=== PATIENT | male | born 1965 | race Two or more races ===

== ENCOUNTER 2019-04-05 21:17 | Inpatient (IN) | payer MEDICARE, OTHER ==
[~2019-04-05] VITALS: Ht 182.9 cm; Wt 124.7 kg
[2019-04-05] MEDS ORDERED: ACETAMINOPHEN 325 MG TABLET PO PRN (22:30)
[2019-04-05] MEDS ORDERED: MAG HYDROX/AL HYDROX/SIMETH 30 ML UDC PO PRN (22:30)
[2019-04-05] MEDS ORDERED: MAGNESIUM HYDROXIDE 30 ML UDC PO PRN (22:30)
[2019-04-05] MEDS ORDERED: ASPI-605 PO (22:32)
[2019-04-05] MEDS ORDERED: ATOR10TA PO (22:33)
[2019-04-05] MEDS ORDERED: CLOZ100T32 PO (22:34)
[2019-04-05] MEDS ORDERED: DOCU100C36 PO (22:35)
[2019-04-05] MEDS ORDERED: POLY17PO4 PO (22:36)
[2019-04-05] MEDS ORDERED: VALP250S4 PO (22:38)
[2019-04-05] MEDS ORDERED: ACET-907 PO (22:40)
[2019-04-05] MEDS ORDERED: IBUP-1953 PO (22:50)
[2019-04-05] MEDS ORDERED: HALO5TAB PO (22:54)
[2019-04-05] MEDS ORDERED: HALO5TAB8 PO (22:55)
[2019-04-05] MEDS ORDERED: BLOOD SUGAR DIAGNOSTIC 1 EACH STRIP IN ONE (23:00)
--- NOTE | 2019-04-05 23:29 | NUR ---
GPS RN NOTE, PATIENT HAS A COMPLAINT OF CHRONIC BILATERAL KNEE PAIN AT 3 OUT 0F 10 ON THE PAIN SCALE AND WOULD LIKE IBUPROFEN ORDERED FOR HIM. PATIENT ALSO NEEDS A MEDICATION RECONCILIATION. PAGED [facility] AND IN FORMED HUYEN GOMEZ DNP OF MY FINDINGS. HUYEN GOMEZ DNP ORDERED TO GIVE IBUPROFEN 600 MG PO Q6HR PRN AND SAID HE WILL RECONCILE PATIENTS HOME MEDICATION SOON POSSIBLE. ALL ORDERS NOTED AND CARRIED OUT WILL CONTINUE TO MONITOR THIS PATIENT WITH THE HELP OF STAFF.
[2019-04-06 00:31] VITALS: BP 104/66
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
[2019-04-06 08:00] VITALS: BP 106/67
[2019-04-06] MEDS ORDERED: LORA-259 PO (08:55)
--- NOTE | 2019-04-06 08:56 | NUR ---
RACE STEWARD/MED RECON. MED-RECON UPDATED. INFO OBTAINED FROM [facility] [phone], FROM [facility]-STAFF.
[2019-04-06] MEDS: NICOTINE PATCH (21MG) 21 MG PATCH.TD24 TD SCH (09:00)
[2019-04-06] MEDS: LORAZEPAM 1 MG TABLET PO PRN ×2 (11:12→18:07)
--- NOTE | 2019-04-06 11:13 | NUR ---
RN NOTE- PT WITH ANXIETY . REQUESTING MEDICATION. ATIVAN 1MG GIVEN.
[2019-04-06] MEDS: BENZTROPINE MESYLATE (1 MG) 1 MG TABLET PO SCH ×2 (12:16→17:12)
[2019-04-06] MEDS: HALOPERIDOL 5 MG TABLET PO SCH ×2 (12:53→17:12)
[2019-04-06] MEDS: DIVALPROEX SODIUM 500 MG TABLET.DR PO SCH ×2 (12:58→21:54)
[2019-04-06 16:00] VITALS: BP 134/91
[2019-04-06] MEDS: IBUPROFEN 600 MG TABLET PO PRN (18:49)
--- NOTE | 2019-04-06 18:49 | NUR ---
RN NOTE- PT C/O PAIN GENERALIZED. MOTRIN 600 MG GIVEN
[2019-04-06 20:49] VITALS: BP 122/80
[2019-04-06] MEDS: ATORVASTATIN 10 MG TABLET PO SCH (21:54)
[2019-04-06] MEDS: ZOLPIDEM TARTRATE 5 MG TABLET PO PRN (22:08)
[2019-04-07] MEDS: IBUPROFEN 600 MG TABLET PO PRN ×2 (03:41→14:00)
--- NOTE | 2019-04-07 03:43 | NUR ---
RN NOTES PT COMPLAINED OF GENERALIZED BODY PAIN, MOTRIN 600MG GIVEN PO AT 0343. WILL CONTINUE TO MONITOR
--- NOTE | 2019-04-07 06:22 | NUR ---
RN NOTES DRUG SCREEN ORDERED, URINE SPECIMEN COLLECTED AT 0600 AND PICKED UP BY LABS. WILL ENDORSE TO NEXT SHIFT
--- NOTE | 2019-04-07 06:38 | NUR ---
RN NOTES PT IN GOOD CONDITION, LYING IN BED, AWAKE AND ALERT X2-3. NO S/S OF DISTRESS, RESPIRATION EVEN AND UNLABORED. SAFETY PRECAUTION CONTINUED, BED IN LOW POSITION, LOCKED AND SIDE RAILS UP X2. WILL CONTINUE TO MONITOR AND ENDORSE TO AM SHIFT
[2019-04-07 06:47] LABS: CALCIUM, SERUM 7.9 mg/dL (8.5-10.1); POTASSIUM 3.9 mmol/L (3.5-5.1)
[2019-04-07 06:53] LABS: BASOPHILS % (AUTO) 0.4 % (0.0-2.0); EOSINOPHILS % (AUTO) 2.7 % (0.0-6.0); HEMATOCRIT 40 % (39-51); HEMOGLOBIN 13.5 g/dL (13.5-17.5); LYMPHOCYTES # (AUTO) 3.4 /CMM (0.8-4.8); LYMPHOCYTES % (AUTO) 34.4 % (20.0-44.0); MEAN CORPUSCULAR HGB CONC 34 g/dl (31.0-36.0); MEAN CORPUSCULAR VOLUME 87 fL (80-96); MONOCYTES # (AUTO) 0.9 /CMM (0.1-1.30); MONOCYTES % (AUTO) 9.5 % (2.0-12.0); NEUTROPHILS # (AUTO) 5.2 /CMM (1.8-8.9); PLATELET COUNT (AUTO) 182 /CMM (150-450); RED BLOOD CELL COUNT(AUTO) 4.64 MIL/uL (4.5-6.0); WHITE BLOOD COUNT (AUTO) 9.8 K/uL (4.3-11.0)
[2019-04-07 08:00] VITALS: BP 128/82
[2019-04-07] MEDS: NICOTINE PATCH (21MG) 21 MG PATCH.TD24 TD SCH (08:10)
[2019-04-07] MEDS: BENZTROPINE MESYLATE (1 MG) 1 MG TABLET PO SCH ×2 (08:10→16:03)
[2019-04-07] MEDS: HALOPERIDOL 5 MG TABLET PO SCH ×3 (08:10→16:03)
[2019-04-07] MEDS: DIVALPROEX SODIUM 500 MG TABLET.DR PO SCH ×2 (08:51→20:43)
[2019-04-07] MEDS: ASPIRIN EC 81 MG TABLET.DR PO SCH (08:51)
[2019-04-07] MEDS: ESCITALOPRAM OXALATE (10 MG) 10 MG TABLET PO SCH (08:51)
--- NOTE | 2019-04-07 11:23 | NUR ---
Conservator Contact: Isabela ([phone]), pts LPS Conservator, called the SW and stated that she wanted information on the pts admission and that the SW can also ask any questions for the assessment. SW stated that she would need the detain and treat as well as the conservatorship paperwork faxed to her. SW also stated that she was unable to do the assessment with the pt and therefore received collateral information from the conservator. SW then discussed the pts discharge plan and it was discussed that the conservator will go off of the MDs recommendation.
[2019-04-07] MEDS: LORAZEPAM 1 MG TABLET PO PRN ×2 (14:00→20:11)
--- NOTE | 2019-04-07 14:00 | NUR ---
RN-CO: Ativan 1 mg PO for anxiety was given.
[2019-04-07 16:00] VITALS: BP 112/66
--- NOTE | 2019-04-07 16:03 | NUR ---
Facility Contact: SW called [facility] facility located at [address] [place] [id number]; ([phone]) and was told that the database administrator will decide if the pt can return but she is out for the day.
--- NOTE | 2019-04-07 16:03 | NUR ---
Initial Discharge Plan: Pt currently resides at [facility] facility located at [address] [place] [id number]; ([phone]). Per pt, he would like to go live with his mother in [place]. Per pts conservator, Isabela ([phone]), the MDs recommendation will be taken into account for placement. LAUREL called the facility ([phone]) and was told that the applications administrator is out but she will decide. LAUREL will work with the MD and the pt regarding appropriate discharge planning. SW will form a safe and proper discharge.
--- NOTE | 2019-04-07 20:12 | NUR ---
RN NOTES: PT. C/O FEELING ANXIOUS , PARANOID ATIVAN 1 MG PO PRN GIVEN PER PT. REQUEST , WILL CONTINUE TO MONITOR.
[2019-04-07 20:20] VITALS: BP 121/83
[2019-04-07] MEDS: ATORVASTATIN 10 MG TABLET PO SCH (21:42)
[2019-04-08 08:00] VITALS: BP 100/58
[2019-04-08] MEDS: HALOPERIDOL 5 MG TABLET PO SCH ×3 (08:40→16:03)
[2019-04-08] MEDS: BENZTROPINE MESYLATE (1 MG) 1 MG TABLET PO SCH ×2 (08:40→16:03)
[2019-04-08] MEDS: ESCITALOPRAM OXALATE (10 MG) 10 MG TABLET PO SCH (08:40)
[2019-04-08] MEDS: NICOTINE PATCH (21MG) 21 MG PATCH.TD24 TD SCH (08:40)
[2019-04-08] MEDS: IBUPROFEN 600 MG TABLET PO PRN ×2 (08:40→16:03)
[2019-04-08] MEDS: ASPIRIN EC 81 MG TABLET.DR PO SCH (08:40)
[2019-04-08] MEDS: DIVALPROEX SODIUM 500 MG TABLET.DR PO SCH ×2 (09:53→20:10)
--- NOTE | 2019-04-08 15:51 | NUR ---
Group Note: SW encouraged pt to participate in group on 04/07/19 at 2pm discussing discharge planning. Pt appeared to be isolating in his room and not engaging with his environment. Pt refused to attend group and stated that he understands that he is going to be discharged back to [facility]. SW stated that she has not confirmed that with the project administrator and therefore it is not certain. Pt stated that he wants to live with his mother in [place] but the SW stated that a SNF may be more appropriate.
--- NOTE | 2019-04-08 15:54 | NUR ---
Facility Contact: LAUREL called [facility] facility located at [address] [place] [address]; ([phone]) and spoke to Ayla who stated that she would like notes to send via e-fax: [phone] when the pt is closer to discharge.
--- NOTE | 2019-04-08 15:57 | NUR ---
Group Note: SW encouraged pt to participate in group on 04/08/19 at 2pm discussing reality testing. Pt appeared to be isolating in his room and not engaging with his environment. Pt refused to attend group and stated that he does not understand why he is in the hospital. Pt stated that he thought he was brought here because he was sick but SW stated that it was because he made a suicide attempt. Pt stated that he does not know what the SW is talking about.
[2019-04-08 16:00] VITALS: BP 146/82
--- NOTE | 2019-04-08 16:04 | NUR ---
RN-CO: MOTRIN 600 MG PO GIVEN FOR GEN. PAIN.
[2019-04-08 20:21] VITALS: BP 124/68
[2019-04-08] MEDS: ATORVASTATIN 10 MG TABLET PO SCH (21:14)
[2019-04-09] MEDS: IBUPROFEN 600 MG TABLET PO PRN ×3 (03:54→18:11)
--- NOTE | 2019-04-09 03:56 | NUR ---
RN NOTES: PT COMPLAINING OF 7/10 GENERALIZED ACHY PAIN. PT WAS ADMINISTERED MOTRIN 600MG PO. WILL CONTINUE TO MONITOR.
[2019-04-09 08:00] VITALS: BP 134/75
[2019-04-09] MEDS: DIVALPROEX SODIUM 500 MG TABLET.DR PO SCH ×2 (08:53→21:30)
[2019-04-09] MEDS: LORAZEPAM 1 MG TABLET PO PRN ×2 (08:53→16:51)
[2019-04-09] MEDS: ESCITALOPRAM OXALATE (10 MG) 10 MG TABLET PO SCH (08:54)
[2019-04-09] MEDS: ASPIRIN EC 81 MG TABLET.DR PO SCH (08:54)
[2019-04-09] MEDS: BENZTROPINE MESYLATE (1 MG) 1 MG TABLET PO SCH ×2 (08:54→16:51)
[2019-04-09] MEDS: NICOTINE PATCH (21MG) 21 MG PATCH.TD24 TD SCH (08:54)
[2019-04-09] MEDS: HALOPERIDOL 5 MG TABLET PO SCH ×3 (08:54→16:51)
--- NOTE | 2019-04-09 08:57 | NUR ---
PRN ATIVAN GIVEN FOR RESTLESSNESS
--- NOTE | 2019-04-09 10:13 | NUR ---
PRN MOTRIN GIVEN FOR 610 GENERALIZED PAIN Addendum: 04/09/19 at 1421 by SERENITY SERRANO RN PRN TYLENOL GIVEN FOR 07/19 GENERALIZED PAIN Addendum: 04/09/19 at 1651 by SERENITY SERRANO RN PRN ATIVAN GIVEN FOR ANXIETY Addendum: 04/09/19 at 1811 by SERENITY SERRANO RN PRN MOTRIN GIVEN FORM 4/10 GENERALIZED PAIN
[2019-04-09 16:00] VITALS: BP 138/78
[2019-04-09 20:06] VITALS: BP 140/82
[2019-04-09] MEDS: ATORVASTATIN 10 MG TABLET PO SCH (21:30)
[2019-04-09] MEDS: ZOLPIDEM TARTRATE 5 MG TABLET PO PRN (22:06)
[2019-04-10] MEDS: IBUPROFEN 600 MG TABLET PO PRN ×2 (05:41→14:31)
--- NOTE | 2019-04-10 05:44 | NUR ---
AT 0540 PT COMPLAINED OF GENERALIZED BODY PAIN LEVEL OF 6/10. MOTRIN 600MG 1 TAB GIVEN PO. WILL CONTINUE TO MONITOR.
[2019-04-10 08:00] VITALS: BP 109/61
[2019-04-10] MEDS: ASPIRIN EC 81 MG TABLET.DR PO SCH (08:17)
[2019-04-10] MEDS: BENZTROPINE MESYLATE (1 MG) 1 MG TABLET PO SCH ×2 (08:17→16:14)
[2019-04-10] MEDS: HALOPERIDOL 5 MG TABLET PO SCH ×3 (08:17→16:14)
[2019-04-10] MEDS: ESCITALOPRAM OXALATE (10 MG) 10 MG TABLET PO SCH (08:17)
[2019-04-10] MEDS: NICOTINE PATCH (21MG) 21 MG PATCH.TD24 TD SCH (08:18)
[2019-04-10] MEDS: DIVALPROEX SODIUM 500 MG TABLET.DR PO SCH ×2 (08:18→21:07)
--- NOTE | 2019-04-10 08:33 | NUR ---
Facility Contact: LAUREL faxed updated notes to Whitley HANEY with attarleen Aguila to the fax number: [phone].
--- NOTE | 2019-04-10 15:13 | NUR ---
Group Note: SW encouraged pt to participate in group on 04/10/19 at 2pm discussing suicidal urges. Pt refused to participate in group and has been isolating in his room. Pt stated that he had made multiple attempts and he cannot explain why other than he did not like where he was at the time. SW asked him if there is anything else that he can do when he is feeling the urge to harm himself and he stated that he could talk to his friends instead. SW encouraged the pt to try that next time or to tell the staff members how he is feeling so that they can help him
--- NOTE | 2019-04-10 15:17 | NUR ---
Facility Contact: LAUREL called [facility] facility ([phone]) and left a voicemail for Ayla regarding the notes that were faxed over and whether or not the pt can return to their facility.
[2019-04-10 16:09] VITALS: BP 129/70
[2019-04-10] MEDS: LORAZEPAM 1 MG TABLET PO PRN (16:23)
[2019-04-10 20:15] VITALS: BP 115/74
[2019-04-10] MEDS: ATORVASTATIN 10 MG TABLET PO SCH (21:07)
[2019-04-10] MEDS: ZOLPIDEM TARTRATE 5 MG TABLET PO PRN (21:50)
[2019-04-11 08:00] VITALS: BP 107/70
[2019-04-11] MEDS: HALOPERIDOL 5 MG TABLET PO SCH ×4 (08:18→20:37)
[2019-04-11] MEDS: DIVALPROEX SODIUM 500 MG TABLET.DR PO SCH ×2 (08:19→20:37)
[2019-04-11] MEDS: ESCITALOPRAM OXALATE (10 MG) 10 MG TABLET PO SCH (08:19)
[2019-04-11] MEDS: BENZTROPINE MESYLATE (1 MG) 1 MG TABLET PO SCH ×2 (08:19→16:30)
[2019-04-11] MEDS: ASPIRIN EC 81 MG TABLET.DR PO SCH (08:19)
[2019-04-11] MEDS: NICOTINE PATCH (21MG) 21 MG PATCH.TD24 TD SCH (08:39)
[2019-04-11] MEDS ORDERED: HALOPERIDOL 5 MG TABLET PO SCH (10:30)
[2019-04-11] MEDS: LORAZEPAM 1 MG TABLET PO PRN ×2 (12:17→18:20)
[2019-04-11] MEDS: IBUPROFEN 600 MG TABLET PO PRN ×2 (14:56→21:01)
--- NOTE | 2019-04-11 15:14 | NUR ---
Group Note: SW encouraged pt to participate in group on 04/11/19 at 2pm discussing social supports. Pt refused to participate in group because he did not want to leave his room. Pt stated, "I do not like talking to other people." Pt stated that he does not have any social supports because he is not close to his family. Pt stated that he does want to be discharged to his mother's house but the SW stated that the plan is for him to return to the [facility] facility.
[2019-04-11 16:00] VITALS: BP 113/58
--- NOTE | 2019-04-11 19:15 | NUR ---
GPS RN NOTES RECEIVED PT IN BED AWAKE, NO S/S OR COMPLAINTS OF PAIN AT THIS TIME. PT IS DISPLAYING NO S/S OF APPARENT DISTRESS AT THIS TIME. PT BREATHING IS UNLABORED WITH EQUAL RISE AND FALL OF THE CHEST. PT A/O X2-3 ON ROOM AIR SATING 97%. PT COMPLIANT WITH MEDICATION, DISORGANIZED, RESPONDING TO INTERNAL STIMULI, ANXIOUS, AND COOPERATIVE. PT DENIES SUICIDE IDEATIONS AND HOMICIDAL IDEATIONS AT THIS TIME. PT ASSISTED WITH TURNING AND REPOSITIONING Q2 HR AND PRN FOR COMFORT AND CIRCULATION. PT HAS NO NEEDS AT THIS TIME. PT EDUCATED ON THE USE OF THE CALL SORIANO. PT BED SIDE RAILS UP X2 FOR SAFETY, BED IS LOCKED AND LOW. WILL CONTINUE TO MONITOR Q15 MIN WITH THE HELP OF STAFF TO MAINTAIN SAFETY.
[2019-04-11 20:00] VITALS: BP 144/80
[2019-04-11] MEDS: ATORVASTATIN 10 MG TABLET PO SCH (21:01)
[2019-04-12] MEDS: LORAZEPAM 1 MG TABLET PO PRN ×4 (01:46→22:32)
[2019-04-12] MEDS: IBUPROFEN 600 MG TABLET PO PRN ×3 (03:01→16:39)
[2019-04-12 08:00] VITALS: BP 112/67
[2019-04-12] MEDS: ASPIRIN EC 81 MG TABLET.DR PO SCH (08:18)
[2019-04-12] MEDS: DIVALPROEX SODIUM 500 MG TABLET.DR PO SCH ×2 (08:18→20:31)
[2019-04-12] MEDS: BENZTROPINE MESYLATE (1 MG) 1 MG TABLET PO SCH ×2 (08:18→16:38)
[2019-04-12] MEDS: ESCITALOPRAM OXALATE (10 MG) 10 MG TABLET PO SCH (08:18)
[2019-04-12] MEDS: HALOPERIDOL 5 MG TABLET PO SCH ×4 (08:18→20:31)
[2019-04-12] MEDS: NICOTINE PATCH (21MG) 21 MG PATCH.TD24 TD SCH (08:18)
[2019-04-12 16:00] VITALS: BP 129/84
[2019-04-12 19:57] VITALS: BP 117/73
[2019-04-12] MEDS: ATORVASTATIN 10 MG TABLET PO SCH (21:17)
[2019-04-12 22:30] VITALS: BP 116/74
--- NOTE | 2019-04-12 22:34 | NUR ---
GPS RN NOTES: PT C/O FEELING ANXIOUS. VITALS CHECKED, WNL. OFFERED ATIVAN 1MG PO PRN ORDERED. PT AGREED AND TOLERATED MEDICATION WELL. CONTINUE TO MONITOR.
[2019-04-13] MEDS: IBUPROFEN 600 MG TABLET PO PRN ×4 (00:21→21:50)
--- NOTE | 2019-04-13 00:23 | NUR ---
GPS RN NOTES: PT C/O OF 09/18 GEN BODY PAIN. PT VITALS WNL. OFFERED MOTRIN 600 MG PO PRN ORDERED. PT AGREED. PT TOLERATED MEDICATION WELL. CONTINUE TO MONITOR.
[2019-04-13 08:00] VITALS: BP 100/59
[2019-04-13] MEDS: HALOPERIDOL 5 MG TABLET PO SCH ×4 (08:13→20:16)
[2019-04-13] MEDS: ESCITALOPRAM OXALATE (10 MG) 10 MG TABLET PO SCH (08:13)
[2019-04-13] MEDS: BENZTROPINE MESYLATE (1 MG) 1 MG TABLET PO SCH ×2 (08:13→16:23)
[2019-04-13] MEDS: DIVALPROEX SODIUM 500 MG TABLET.DR PO SCH ×2 (08:13→20:17)
[2019-04-13] MEDS: ASPIRIN EC 81 MG TABLET.DR PO SCH (08:13)
[2019-04-13] MEDS: NICOTINE PATCH (21MG) 21 MG PATCH.TD24 TD SCH (08:14)
[2019-04-13] MEDS: LORAZEPAM 1 MG TABLET PO PRN ×2 (10:16→16:41)
--- NOTE | 2019-04-13 10:17 | NUR ---
GPS RN NOTES: PT C/O FEELING ANXIOUS. ATIVAN 1MG PO PRN ORDERED GIVEN . WELL. CONTINUE TO MONITOR.
--- NOTE | 2019-04-13 14:28 | NUR ---
GPS RN NOTES: PT C/O OF 09/18 GEN BODY PAIN. MOTRIN 600 MG PO PRN GIVEN ORDERED. CONTINUE TO MONITOR.
[2019-04-13 16:00] VITALS: BP 115/70
--- NOTE | 2019-04-13 16:41 | NUR ---
GPS RN NOTES: PT C/O FEELING ANXIOUS. ATIVAN 1MG PO PRN ORDERED GIVEN . WELL. CONTINUE TO MONITOR.
[2019-04-13 19:44] VITALS: BP 128/74
[2019-04-13] MEDS: ATORVASTATIN 10 MG TABLET PO SCH (21:12)
[2019-04-13 21:49] VITALS: BP 128/69
[2019-04-14 08:00] VITALS: BP 118/62
[2019-04-14] MEDS: ASPIRIN EC 81 MG TABLET.DR PO SCH (08:10)
[2019-04-14] MEDS: DIVALPROEX SODIUM 500 MG TABLET.DR PO SCH ×2 (08:10→20:33)
[2019-04-14] MEDS: BENZTROPINE MESYLATE (1 MG) 1 MG TABLET PO SCH ×2 (08:10→16:28)
[2019-04-14] MEDS: ESCITALOPRAM OXALATE (10 MG) 10 MG TABLET PO SCH (08:10)
[2019-04-14] MEDS: HALOPERIDOL 5 MG TABLET PO SCH ×4 (08:10→20:33)
[2019-04-14] MEDS: IBUPROFEN 600 MG TABLET PO PRN ×3 (08:10→21:46)
[2019-04-14] MEDS: NICOTINE PATCH (21MG) 21 MG PATCH.TD24 TD SCH (08:13)
--- NOTE | 2019-04-14 10:35 | NUR ---
Facility Contact: iJa from [facility] facility ([phone]) called the SW and stated that they are considering taking their patient back but need more notes regarding his behavior.
--- NOTE | 2019-04-14 11:49 | NUR ---
Facility Contact: LAUREL faxed updated notes to Whitley HANEY with attn Jia Mcarthur to the fax number: [phone].
[2019-04-14] MEDS: LORAZEPAM 1 MG TABLET PO PRN ×2 (12:28→19:41)
--- NOTE | 2019-04-14 12:28 | NUR ---
RN NOTE- PT W ANXIETY. ATIVAN 1 MG GIVEN
--- NOTE | 2019-04-14 12:50 | NUR ---
Facility Contact: Jia from [facility] facility ([phone]) called the SW and stated that they will accept the pt back to their facility. She stated that she is requesting that the pt be discharged the following morning because the psychiatrist will be available to see the pt. She also stated that after Sunday their systems will be down so she prefers if the pt can be discharged tomorrow. LAUREL stated that she will contact the MD.
--- NOTE | 2019-04-14 12:59 | NUR ---
MD Contact: LAUREL contacted the MD, Dr. Vicente, and he stated that he approves the pt to be discharged early the following morning.
--- NOTE | 2019-04-14 12:59 | NUR ---
Facility Contact: LAUREL called Jia from [facility] facility ([phone]) and informed her that the pt will be discharged the following day. She stated that she will speak to the zoning administrator regarding the pts transport.
--- NOTE | 2019-04-14 14:12 | NUR ---
Conservator Contact: LAUREL called Isabela ([phone]), pts LPS Conservator, and informed her that the pt will be discharged back to [facility] the following day.
--- NOTE | 2019-04-14 14:32 | NUR ---
Facility Contact: Jia from [facility] facility ([phone]) called the and stated that transportation will get taken care of through [facility] ([phone]) and was informed to speak to Lissette.
--- NOTE | 2019-04-14 15:33 | NUR ---
Transportation Contact: LAUREL called Lissette from [facility] ([phone]) and was informed that her burling and joining supervisor stated that they cannot arrange transportation as it is the responsibility of our facility.
--- NOTE | 2019-04-14 15:35 | NUR ---
RN NOTE- PT W GENERALIZED DISCOMFORT. MOTRIN 600 MG GIVEN
[2019-04-14 16:00] VITALS: BP 108/70
--- NOTE | 2019-04-14 17:32 | NUR ---
RN NOTE- PT DC TOMORROW MORNING. ORDERS BEING COMPLETED . B[facility]AK [facility] ORDERED PT TO REMAIN ON LIPITOR, ASA AND MOTRIN PREVIOUSLY ORDERED.
--- NOTE | 2019-04-14 19:55 | NUR ---
GPS RN NOTES VERBALIZED ANXIETY AND NOTED WITH INABILITY TO STAY STILL, ATIVAN 1MG GIVEN BY MOUTH. NON-PHARMACOLOGICAL INTERVENTIONS PROVIDED. WILL CONTINUE TO MONITOR.
[2019-04-14 20:32] VITALS: BP 124/79
[2019-04-14] MEDS: ATORVASTATIN 10 MG TABLET PO SCH (21:11)
[2019-04-14 22:00] VITALS: BP 118/62
[2019-04-15] MEDS: HALOPERIDOL 5 MG TABLET PO SCH (07:45)
[2019-04-15] MEDS: BENZTROPINE MESYLATE (1 MG) 1 MG TABLET PO SCH (07:45)
[2019-04-15] MEDS: IBUPROFEN 600 MG TABLET PO PRN (07:45)
[2019-04-15] MEDS: DIVALPROEX SODIUM 500 MG TABLET.DR PO SCH (07:45)
[2019-04-15] MEDS: ESCITALOPRAM OXALATE (10 MG) 10 MG TABLET PO SCH (07:45)
[2019-04-15] MEDS: ASPIRIN EC 81 MG TABLET.DR PO SCH (07:45)
[2019-04-15] MEDS: NICOTINE PATCH (21MG) 21 MG PATCH.TD24 TD SCH (07:46)
[2019-04-15 08:00] VITALS: BP 102/67
--- NOTE | 2019-04-15 08:15 | NUR ---
RN NOTE/ DC NOTE- PT DC AT THIS TIME VIA WHEELCHAIR AND VAN TO [facility] IN [place]. PT IS ALERT, ORIENTED TO PERSON AND PLACE. DENIES SI HI AH VH AT TIME OF DC. VS STABLE, VALUABLES RETURNED TO PATIENT, AFTERCARE AND MEDS REVIEWED WITH TRASH MAN AND REPORT CALLED TO STEVAN SOLO AT FACILITY. ID [place] REMOVED AND PATIENT ESCORTED OFF OF UNIT.
--- NOTE | 2019-04-15 10:45 | NUR ---
Discharge Note: Pt was discharged to [facility] located at [address] [place] [address]; ([phone]). Pt was discharged via [facility] at 8AM. Isabela ([phone]), pts [facility] Conservator, was made aware of the discharge. Upon discharge, the pt appeared to be in a euthymic mood and presented with a calm affect. Pt denied both suicidal and homicidal ideation as well as auditory and visual hallucinations. Pt appeared to be alert and oriented x4 (time, place, self and situation). Pt will continue to be under the care of psychiatrist, Dr. Antoine Perez, located at [address] [address]; and technical trainer, Dr. Kirsten Gannon, located at [address] [address]; .
== END 2019-04-15 08:15 | DRG 885 ==
LOC: GPS 21:17
PROVIDERS: ADMIT Psychiatry & Neurology Psychiatry; ATTEND Nurse Practitioner Acute Care
DX: F25.0 Schizoaffective disorder, bipolar type (principal); E78.5 Hyperlipidemia, unspecified; E66.9 Obesity, unspecified; F17.210 Nicotine dependence, cigarettes, uncomplicated; Z68.37 Body mass index [BMI] 37.0-37.9, adult; F32.9 Major depressive disorder, single episode, unspecified; F29 Unspecified psychosis not due to a substance or known physiological condition; R62.59 Other lack of expected normal physiological development in childhood
CPT/HCPCS: 36415; 80048-TC; 80061-TC; 80164-TC; 80305; 85025-TC; 87081-TC

== ENCOUNTER 2024-05-30 21:03 | Inpatient (IN) | payer MEDICARE, BC ==
[~2024-05-30] VITALS: Ht 182.9 cm; Wt 99.8 kg
[~2024-05-30 21:03] MED LIST: ASPI-605 PO; ATOR10TA PO; CLOZ100T32 PO; HALO5TAB PO; LORA-259 PO; VALP250S4 PO
[2024-05-30 22:14] LABS: BASOPHILS % (AUTO) 0.6 % (0.0-2.0); EOSINOPHILS # (AUTO) 0.1 K/uL (0.0-0.7); EOSINOPHILS % (AUTO) 1.7 % (0.0-6.0); HEMATOCRIT 39 % (39-51); HEMOGLOBIN 13.5 g/dL (13.5-17.5); LYMPHOCYTES # (AUTO) 2.1 K/uL (0.8-4.8); LYMPHOCYTES % (AUTO) 35.1 % (20.0-44.0); MEAN CORPUSCULAR HEMOGLOBIN 28 PG (26.0-33.0); MEAN CORPUSCULAR HGB CONC 34 g/dl (31.0-36.0); MEAN CORPUSCULAR VOLUME 81 fL (80-96); MONOCYTES # (AUTO) 0.7 K/uL (0.1-1.30); MONOCYTES % (AUTO) 10.9 % (2.0-12.0); NEUTROPHILS # (AUTO) 3.1 K/uL (1.8-8.9); NEUTROPHILS % (AUTO) 51.7 % (43.0-81.0); PLATELET COUNT (AUTO) 240 K/uL (150-450); RED BLOOD CELL COUNT(AUTO) 4.84 MIL/uL (4.5-6.0); RED CELL DISTRIBUTION WIDTH 14.2 % (11.5-15.0)
[2024-05-30 22:21] LABS: CALCIUM, SERUM 9.1 mg/dL (8.5-10.1); CARBON DIOXIDE 27 mmol/L (21-32); CHLORIDE 106 mmol/L (98-107); CREATININE 0.9 mg/dL (0.6-1.3); GLUCOSE 112 mg/dL (74-106); SODIUM SERUM 139 mmol/L (136-145); UREA NITROGEN, BLOOD 12 mg/dL (7-18)
[2024-05-30 22:27] LABS: ACETAMINOPHEN < 10 ug/ml (10-30); ALANINE AMINOTRANSFERASE 25 U/L (12-78); ALBUMIN 3.3 g/dL (3.4-5.0); ALKALINE PHOSPHATASE 67 U/L (46-116); ASPARTATE AMINOTRANSFERASE 14 U/L (15-37); BILIRUBIN,DIRECT 0.1 mg/dL (0.0-0.2); BILIRUBIN,TOTAL 0.3 mg/dL (0.2-1.0); SALICYLATE 3.3 mg/dL (2.8-20.0); TOTAL PROTEIN, SERUM 6.3 g/dL (6.4-8.2)
[2024-05-30 22:29] LABS: ALCOHOL, BLOOD < 3 mg/dL (0-10)
[2024-05-30 22:58] LABS: APPEARANCE,URINE CLEAR (CLEAR); BILIRUBIN,URINE NEGATIVE (NEGATIVE); BLOOD, URINE NEGATIVE Ery/uL (NEGATIVE); COLOR,URINE YELLOW (YELLOW); KETONES,URINE NEGATIVE (NEGATIVE); LEUKOCYTE ESTERASE ,URINE NEGATIVE (NEGATIVE); NITRITE, URINE NEGATIVE (NEGATIVE); PROTEIN,URINE NEGATIVE (NEGATIVE); UGLUCOSE NEGATIVE (NEGATIVE); UROBILINOGEN,URINE 0.2 EU/dL (0.2)
[2024-05-30 23:04] LABS: AMPHETAMINE, URINE NEGATIVE (NEGATIVE); BARBITURATE, URINE NEGATIVE (NEGATIVE); BENZODIAZEPINE, URINE NEGATIVE (NEGATIVE); CANNABINOID, URINE NEGATIVE (NEGATIVE); COCCAINE, URINE NEGATIVE (NEGATIVE); PHENCYCLIDINE SCREEN,URINE NEGATIVE (NEGATIVE)
[2024-05-30 23:08] LABS: OPIATE, URINE POSITIVE (NEGATIVE)
[2024-05-31 01:20] VITALS: O2SAT 97
[2024-05-31] MEDS ORDERED: ACETAMINOPHEN 325 MG TABLET PO PRN (04:00)
[2024-05-31] MEDS ORDERED: ZOLPIDEM TARTRATE 5 MG TABLET PO PRN (04:00)
[2024-05-31] MEDS ORDERED: LORAZEPAM 1 MG TABLET PO PRN (04:00)
[2024-05-31] MEDS ORDERED: MAG HYDROX/AL HYDROX/SIMETH 30 ML UDC PO PRN (04:00)
[2024-05-31] MEDS ORDERED: MAGNESIUM HYDROXIDE 30 ML UDC PO PRN ×2 (04:00→12:30)
[2024-05-31] MEDS: BLOOD SUGAR DIAGNOSTIC 1 EACH STRIP IN ONE (04:44)
[2024-05-31 08:00] VITALS: BP 117/70; TEMP 97.7; O2SAT 99
[2024-05-31] MEDS: NICOTINE PATCH (21MG) 21 MG PATCH.TD24 TD SCH (09:00)
[2024-05-31] MEDS: ACETAMINOPHEN W/ CODEINE#3 1 EA TABLET PO PRN (11:22)
[2024-05-31] MEDS ORDERED: VALP250S4 PO (11:32)
[2024-05-31] MEDS ORDERED: TEMA7.5C12 PO (11:32)
[2024-05-31] MEDS ORDERED: HYDR-4303 PO (11:32)
[2024-05-31] MEDS ORDERED: METF-440 PO (11:32)
[2024-05-31] MEDS ORDERED: LORA-259 PO (11:32)
[2024-05-31] MEDS ORDERED: NALO4SPR NS (11:32)
[2024-05-31] MEDS ORDERED: RISP2TAB85 PO (11:32)
[2024-05-31] MEDS ORDERED: CALC355O18 PO (11:32)
[2024-05-31] MEDS ORDERED: MAGN400O6 PO (11:32)
[2024-05-31] MEDS ORDERED: QUET200T PO (11:32)
[2024-05-31] MEDS ORDERED: MELA5TAB PO (11:32)
[2024-05-31] MEDS ORDERED: NALOXONE HCL 4 MG SPRAY NS PRN (12:30)
[2024-05-31] MEDS: METFORMIN 500 MG TABLET PO SCH (12:33)
[2024-05-31 16:00] VITALS: BP 135/78; TEMP 97.8; O2SAT 95
[2024-05-31] MEDS: risperiDONE 1 MG TABLET PO SCH (16:40)
[2024-05-31 21:21] VITALS: BP 113/60; TEMP 97.8; O2SAT 98
[2024-05-31] MEDS: QUETIAPINE FUMARATE 100 MG TABLET PO SCH (21:30)
[2024-06-01 08:00] VITALS: BP 95/53; TEMP 97.8; O2SAT 98
[2024-06-01 16:00] VITALS: BP 123/79; TEMP 98.4; O2SAT 98
[2024-06-01 20:23] VITALS: BP 111/57; TEMP 97.6; O2SAT 96
[2024-06-01] MEDS: ZOLPIDEM TARTRATE 5 MG TABLET PO PRN (21:18)
[2024-06-02 08:00] VITALS: BP 116/81; TEMP 97.8; O2SAT 98
[2024-06-02 15:42] VITALS: BP 135/83; TEMP 97.9; O2SAT 97
[2024-06-02 20:00] VITALS: BP 136/87; TEMP 98.2; O2SAT 95
[2024-06-03 08:00] VITALS: BP 114/78; TEMP 97.8; O2SAT 94
[2024-06-03 16:00] VITALS: BP 133/81; TEMP 98; O2SAT 98
[2024-06-03] MEDS: risperiDONE 1 MG TABLET PO SCH (17:21)
[2024-06-03 20:13] VITALS: BP 129/89; TEMP 98.1; O2SAT 96
[2024-06-03] MEDS: LORAZEPAM 1 MG TABLET PO PRN (20:13)
[2024-06-04 02:37] VITALS: BP 129/89; TEMP 98.1
[2024-06-04 08:00] VITALS: BP 103/77; TEMP 98.1; O2SAT 97
[2024-06-04 16:26] VITALS: BP 133/90; TEMP 97.7; O2SAT 97
[2024-06-04 20:00] VITALS: BP 136/88; TEMP 98.1; O2SAT 96
[2024-06-05 08:00] VITALS: BP 117/80; TEMP 97.7; O2SAT 95
[2024-06-05 16:00] VITALS: BP 121/85; TEMP 98; O2SAT 97
[2024-06-05 20:48] VITALS: BP 99/58; TEMP 98.1; O2SAT 96
[2024-06-06 08:00] VITALS: BP 106/67; TEMP 98; O2SAT 96
[2024-06-06 16:00] VITALS: BP 133/83; TEMP 98.6; O2SAT 97
[2024-06-06] MEDS: risperiDONE 1 MG TABLET PO SCH (17:31)
[2024-06-06 20:02] VITALS: BP 105/62; TEMP 98.4; O2SAT 100
[2024-06-06 20:05] VITALS: BP 105/62; TEMP 98.4; O2SAT 100
[2024-06-07 08:00] VITALS: BP 117/77; TEMP 98.1; O2SAT 96
[2024-06-07 16:00] VITALS: BP 138/90; TEMP 97.7; O2SAT 98
[2024-06-07 20:19] VITALS: BP 133/83; TEMP 98.2; O2SAT 97
[2024-06-07] MEDS: QUETIAPINE FUMARATE 25 MG TABLET PO SCH (21:30)
[2024-06-08 08:00] VITALS: BP 120/87; TEMP 98; O2SAT 96
[2024-06-08 16:06] VITALS: BP 140/80; TEMP 98; O2SAT 98
[2024-06-08 22:57] VITALS: BP 138/81; TEMP 98; O2SAT 97
[2024-06-09 08:00] VITALS: BP 116/66; TEMP 97.7; O2SAT 97
== END 2024-06-09 13:10 | DRG 885 ==
LOC: ER 21:16 → GPS 05-31 03:17
PROVIDERS: ADMIT Psychiatry & Neurology Psychiatry; ATTEND Internal Medicine
DX: F25.0 Schizoaffective disorder, bipolar type (principal); F79 Unspecified intellectual disabilities; Z94.1 Heart transplant status; F29 Unspecified psychosis not due to a substance or known physiological condition; E78.5 Hyperlipidemia, unspecified; F32.A Depression, unspecified; Z79.899 Other long term (current) drug therapy; F17.210 Nicotine dependence, cigarettes, uncomplicated; Z79.84 Long term (current) use of oral hypoglycemic drugs; Z88.5 Allergy status to narcotic agent; Z79.82 Long term (current) use of aspirin; Z73.6 Limitation of activities due to disability
CPT/HCPCS: 36415; 80048-TC; 80076-TC; 85025-TC; 87081-TC; 97110-TC; 97116-TC; 97530-TC; G0480